=== PATIENT | male | born 1965 | race Hispanic/Latino ===

== ENCOUNTER → 2018-07-21 | Outpatient (CLI) | payer MEDICAID ==
[~2018-07-21] MED LIST: ASPI-1005 PO; ATOR40TA69 PO; CARV12.580 PO; FENO48TA15 PO; LISI-613 PO; Nitroglycerin 0.4MG Sl Tab SL; TICA90TA PO
== END | disposition home or self-care (01) ==
LOC: SHCH 15:50
PROVIDERS: ATTEND Internal Medicine Cardiovascular Disease
DX: I10 Essential (primary) hypertension (principal)
CPT/HCPCS: 93306

== ENCOUNTER 2018-08-30 15:14 | Inpatient (IN) | payer MEDICAID ==
[~2018-08-30] VITALS: Ht 165.1 cm; Wt 108.8 kg
[2018-08-30] MEDS ORDERED: ENOXAPARIN SODIUM 100 MG/1 ML SQ ONE (15:40)
[2018-08-30] MEDS ORDERED: ACETAMINOPHEN-CODEINE 300/30MG TAB ONE (15:41)
[2018-08-30 15:56] LABS: BASOPHILS % (AUTO) 1.1 % (0.0-5.0); EOSINOPHILS % (AUTO) 2.7 % (0.0-8.0); HEMATOCRIT 40.2 % (42-54); LYMPHOCYTES % (AUTO) 37.1 % (21.0-51.0); MEAN CORPUSCULAR HEMOGLOBIN 30.5 pg (27.0-33.0); MEAN CORPUSCULAR HGB CONC 34.5 g/dL (32.0-36.0); MEAN CORPUSCULAR VOLUME 88.5 fL (79-99); MONOCYTES % (AUTO) 5.2 % (3.0-13.0); NEUTROPHILS % (AUTO) 53.9 % (40.0-77.0); NUCLEATED RED BLOOD CELLS 0.1 % (0.0-0.19); PLATELET COUNT (AUTO) 196 K/uL (130-400); RED BLOOD CELL COUNT(AUTO) 4.55 MIL/uL (4.50-6.20); RED CELL DISTRIBUTION WIDTH 13.9 % (11.0-15.5); WHITE BLOOD COUNT (AUTO) 6.6 K/uL (4.8-10.8)
[2018-08-30 16:11] LABS: INR 0.89 (0.85-1.15); PARTIAL THROMBOPLASTIN TIME 26.7 SEC (26.3-35.5); PROTHROMBIN TIME 9.4 SEC (9.6-11.6)
[2018-08-30 16:12] LABS: CREATININE 1.2 mg/dL (0.5-1.5); POTASSIUM 4.7 mmol/L (3.5-5.1)
[2018-08-30] MEDS ORDERED: IOHEXOL-350 75 ML VIAL IV ONE (16:21)
[2018-08-30 16:23] LABS: ALBUMIN 3.2 g/dL (3.5-5.0); BILIRUBIN,TOTAL 0.4 mg/dL (0.2-1.0); TOTAL PROTEIN, SERUM 7.3 g/dL (6.0-8.3)
[2018-08-30 16:30] LABS: B-TYPE NATRIURETIC PEPTIDE 93 pg/mL (0-100)
[2018-08-30] MEDS ORDERED: DEXTROSE 50%-WATER 50 ML DISP.SYRIN IV PRN (18:30)
[2018-08-30] MEDS ORDERED: GLUCAGON 1MG KIT 1 MG ML IM PRN (18:30)
[2018-08-30 18:58] LABS: HEMOGLOBIN A1C 10.7 % (4.0-6.0)
[2018-08-30] MEDS ORDERED: HYDROCODONE/ACETAMINOPHEN 5/325 MG TAB ONE (20:04)
[2018-08-30] MEDS: INSULIN HUMULIN R 100 UNIT/ML 3ML SQ SCH (21:00)
[2018-08-30] MEDS ORDERED: INSULIN HUMULIN R 100 UNIT/ML 3ML ONE (21:42)
[2018-08-30 22:10] VITALS: BP 118/70
[2018-08-30] MEDS ORDERED: SODIUM CHLORIDE 0.9% 1000ML 1,000 ML IV SCH (23:37)
[2018-08-30] MEDS ORDERED: HYDROCODONE/ACETAMINOPHEN 5/325 MG TAB PO PRN (23:45)
[2018-08-30] MEDS ORDERED: ACETAMINOPHEN 325 MG TAB PO PRN (23:45)
[2018-08-30] MEDS ORDERED: ONDANSETRON HCL 4 MG/2 ML VIAL IV PRN (23:45)
[2018-08-31] VITALS: BP 106/65
[2018-08-31] MEDS: SODIUM CHLORIDE 0.9% 1000ML 1,000 ML IV SCH ×2 (03:06→22:48)
[2018-08-31] MEDS: HYDROCODONE/ACETAMINOPHEN 5/325 MG TAB PO PRN ×4 (03:15→18:18)
[2018-08-31 04:00] VITALS: BP 116/74
[2018-08-31 05:23] LABS: BASOPHILS % (AUTO) 1.2 % (0.0-5.0); EOSINOPHILS % (AUTO) 3.3 % (0.0-8.0); HEMATOCRIT 37.9 % (42-54); LYMPHOCYTES % (AUTO) 58.9 % (21.0-51.0); MEAN CORPUSCULAR HEMOGLOBIN 31.7 pg (27.0-33.0); MEAN CORPUSCULAR HGB CONC 35.5 g/dL (32.0-36.0); MEAN CORPUSCULAR VOLUME 89.2 fL (79-99); MONOCYTES % (AUTO) 6.7 % (3.0-13.0); NEUTROPHILS % (AUTO) 29.9 % (40.0-77.0); NUCLEATED RED BLOOD CELLS 0.1 % (0.0-0.19); PLATELET COUNT (AUTO) 211 K/uL (130-400); RED BLOOD CELL COUNT(AUTO) 4.25 MIL/uL (4.50-6.20); RED CELL DISTRIBUTION WIDTH 14.2 % (11.0-15.5); WHITE BLOOD COUNT (AUTO) 7.1 K/uL (4.8-10.8)
[2018-08-31 05:37] LABS: ALBUMIN 3.1 g/dL (3.5-5.0); BILIRUBIN,TOTAL 0.4 mg/dL (0.2-1.0); CREATININE 0.8 mg/dL (0.5-1.5); POTASSIUM 3.5 mmol/L (3.5-5.1); TOTAL PROTEIN, SERUM 6.9 g/dL (6.0-8.3)
[2018-08-31] MEDS: INSULIN HUMULIN R 100 UNIT/ML 3ML SQ SCH ×4 (06:02→20:49)
[2018-08-31 08:00] VITALS: BP 119/75
[2018-08-31] MEDS ORDERED: SERT50TA12 PO (08:23)
[2018-08-31] MEDS ORDERED: GABA-529 PO (08:23)
[2018-08-31] MEDS ORDERED: CARV25TA PO (08:23)
[2018-08-31] MEDS ORDERED: INSLAN SQ (08:23)
[2018-08-31] MEDS: PANTOPRAZOLE SODIUM 40 MG TABLET.DR PO SCH (09:14)
[2018-08-31] MEDS: ENOXAPARIN SODIUM 100 MG/1 ML SQ SCH ×2 (09:14→21:02)
[2018-08-31 11:38] VITALS: BP 136/60
[2018-08-31 16:00] VITALS: BP 126/63
[2018-08-31 19:54] VITALS: BP 123/78
[2018-08-31] MEDS ORDERED: POTASSIUM CHLORIDE 20 MEQ ERTAB PO PRN (20:00)
[2018-08-31] MEDS ORDERED: POTASSIUM CHLORIDE 10% ELIXIR 20 MEQ/15 ML UDCUP PO PRN (20:00)
[2018-08-31] MEDS ORDERED: POTASSIUM CHLORIDE 10 MEQ/TAB.SA PO ONE ×2 (20:45→20:46)
[2018-08-31] MEDS: GABAPENTIN 100 MG CAPSULE PO SCH (21:01)
[2018-08-31] MEDS: FENOFIBRATE NANOCRYSTALLIZED 48 MG TAB PO SCH (21:01)
[2018-08-31] MEDS: TICAGRELOR 90 MG TABLET PO SCH (21:02)
[2018-09-01] VITALS (7 sets, daily range): BP systolic 115–127; BP diastolic 73–78
[2018-09-01] MEDS ORDERED: POTASSIUM CHLORIDE 10 MEQ/TAB.SA PO ONE ×2 (02:01)
[2018-09-01] MEDS: HYDROCODONE/ACETAMINOPHEN 5/325 MG TAB PO PRN ×2 (02:06→07:57)
[2018-09-01 05:09] LABS: BASOPHILS % (AUTO) 1.1 % (0.0-5.0); EOSINOPHILS % (AUTO) 3.7 % (0.0-8.0); HEMATOCRIT 36.4 % (42-54); LYMPHOCYTES % (AUTO) 54.8 % (21.0-51.0); MEAN CORPUSCULAR HEMOGLOBIN 31.4 pg (27.0-33.0); MEAN CORPUSCULAR HGB CONC 35.5 g/dL (32.0-36.0); MEAN CORPUSCULAR VOLUME 88.5 fL (79-99); MONOCYTES % (AUTO) 6.9 % (3.0-13.0); NEUTROPHILS % (AUTO) 33.5 % (40.0-77.0); NUCLEATED RED BLOOD CELLS 0.2 % (0.0-0.19); PLATELET COUNT (AUTO) 183 K/uL (130-400); RED BLOOD CELL COUNT(AUTO) 4.12 MIL/uL (4.50-6.20); RED CELL DISTRIBUTION WIDTH 14.2 % (11.0-15.5); WHITE BLOOD COUNT (AUTO) 6.1 K/uL (4.8-10.8)
[2018-09-01] MEDS: INSULIN HUMULIN R 100 UNIT/ML 3ML SQ SCH ×4 (06:46→21:27)
[2018-09-01] MEDS: PANTOPRAZOLE SODIUM 40 MG TABLET.DR PO SCH (07:51)
[2018-09-01] MEDS: ASPIRIN 81MG TAB.CHEW PO SCH (07:51)
[2018-09-01] MEDS: SERTRALINE HCL 50 MG TABLET PO SCH (07:51)
[2018-09-01] MEDS: TICAGRELOR 90 MG TABLET PO SCH ×2 (07:51→21:24)
[2018-09-01] MEDS: CARVEDILOL 25 MG TABLET PO SCH (07:51)
[2018-09-01] MEDS: GABAPENTIN 100 MG CAPSULE PO SCH ×3 (07:51→21:24)
[2018-09-01] MEDS: ENOXAPARIN SODIUM 100 MG/1 ML SQ SCH ×2 (07:52→21:25)
[2018-09-01] MEDS: INSULIN GLARGINE 100 UNITS/ML 10 ML VIAL SQ SCH (07:54)
[2018-09-01] MEDS: MORPHINE SULFATE 2 MG/ML 1ML SYG IVP PRN ×2 (13:03→18:14)
[2018-09-01] MEDS: FENOFIBRATE NANOCRYSTALLIZED 48 MG TAB PO SCH (21:24)
[2018-09-01] MEDS: MORPHINE SULFATE 4 MG/1ML SYG IVP PRN (21:46)
[2018-09-02 04:17] VITALS: BP 136/77
[2018-09-02 04:21] LABS: HEMATOCRIT 36.7 % (42-54); MEAN CORPUSCULAR HEMOGLOBIN 32.5 pg (27.0-33.0); MEAN CORPUSCULAR HGB CONC 36.4 g/dL (32.0-36.0); MEAN CORPUSCULAR VOLUME 89.3 fL (79-99); NUCLEATED RED BLOOD CELLS 0.1 % (0.0-0.19); PLATELET COUNT (AUTO) 218 K/uL (130-400); RED BLOOD CELL COUNT(AUTO) 4.11 MIL/uL (4.50-6.20); WHITE BLOOD COUNT (AUTO) 5.6 K/uL (4.8-10.8)
[2018-09-02 04:39] LABS: CREATININE 0.9 mg/dL (0.5-1.5); POTASSIUM 4.1 mmol/L (3.5-5.1)
[2018-09-02 04:42] LABS: B-TYPE NATRIURETIC PEPTIDE 321 pg/mL (0-100)
[2018-09-02] MEDS: INSULIN HUMULIN R 100 UNIT/ML 3ML SQ SCH ×4 (06:11→22:08)
[2018-09-02] MEDS: ENOXAPARIN SODIUM 100 MG/1 ML SQ SCH ×2 (07:03→10:56)
[2018-09-02] MEDS: INSULIN GLARGINE 100 UNITS/ML 10 ML VIAL SQ SCH ×2 (07:03→10:59)
[2018-09-02] MEDS: ASPIRIN 81MG TAB.CHEW PO SCH ×2 (07:04→10:55)
[2018-09-02] MEDS: TICAGRELOR 90 MG TABLET PO SCH ×2 (07:04→10:55)
[2018-09-02 07:55] VITALS: BP 122/70
[2018-09-02] MEDS: CARVEDILOL 25 MG TABLET PO SCH ×2 (09:00→10:55)
[2018-09-02] MEDS: GABAPENTIN 100 MG CAPSULE PO SCH ×4 (09:00→20:04)
[2018-09-02] MEDS: SERTRALINE HCL 50 MG TABLET PO SCH ×2 (09:00→10:55)
[2018-09-02] MEDS: PANTOPRAZOLE SODIUM 40 MG TABLET.DR PO SCH ×2 (09:00→10:55)
[2018-09-02 11:00] VITALS: BP 149/111
[2018-09-02] MEDS: MORPHINE SULFATE 4 MG/1ML SYG IVP PRN ×3 (11:08→20:06)
[2018-09-02 16:04] VITALS: BP 126/75
[2018-09-02] MEDS ORDERED: TICAGRELOR 90 MG TABLET ONE (19:53)
[2018-09-02] MEDS: FENOFIBRATE NANOCRYSTALLIZED 48 MG TAB PO SCH (20:05)
[2018-09-02] MEDS: APIXABAN 5 MG TABLET PO SCH (20:05)
[2018-09-02 20:09] VITALS: BP 118/67
[2018-09-02] MEDS ORDERED: TICAGRELOR 90 MG TABLET PO SCH (21:00)
[2018-09-02 23:40] VITALS: BP 120/84
[2018-09-03] MEDS: MORPHINE SULFATE 4 MG/1ML SYG IVP PRN ×2 (02:13→08:05)
[2018-09-03 04:25] VITALS: BP 119/71
[2018-09-03] MEDS: INSULIN HUMULIN R 100 UNIT/ML 3ML SQ SCH ×2 (07:30→11:01)
[2018-09-03 07:43] VITALS: BP 110/67
[2018-09-03 08:02] VITALS: BP 110/67
[2018-09-03] MEDS: CARVEDILOL 25 MG TABLET PO SCH (08:02)
[2018-09-03] MEDS: APIXABAN 5 MG TABLET PO SCH (08:02)
[2018-09-03] MEDS: SERTRALINE HCL 50 MG TABLET PO SCH (08:02)
[2018-09-03] MEDS: PANTOPRAZOLE SODIUM 40 MG TABLET.DR PO SCH (08:02)
[2018-09-03] MEDS: INSULIN GLARGINE 100 UNITS/ML 10 ML VIAL SQ SCH (08:03)
[2018-09-03] MEDS: GABAPENTIN 100 MG CAPSULE PO SCH ×2 (08:06→14:00)
[2018-09-03] MEDS ORDERED: CLOPIDOGREL BISULFATE 75 MG TAB PO SCH (09:00)
[2018-09-03] MEDS ORDERED: APIX5TAB PO ×2 (13:28)
[2018-09-03] MEDS ORDERED: CLOP75TA14 PO (13:28)
== END 2018-09-03 14:50 | disposition home or self-care (01) | DRG 197 ==
LOC: EDH 15:14 → EDHIP 15:15 → UNDOADMIN 18:45 → 2DH 21:34
PROVIDERS: ADMIT Internal Medicine; ATTEND Internal Medicine
DX: I82.412 Acute embolism and thrombosis of left femoral vein (principal); I26.99 Other pulmonary embolism without acute cor pulmonale; E11.40 Type 2 diabetes mellitus with diabetic neuropathy, unspecified; I11.0 Hypertensive heart disease with heart failure; I50.20 Unspecified systolic (congestive) heart failure; E11.65 Type 2 diabetes mellitus with hyperglycemia; E78.5 Hyperlipidemia, unspecified; I25.10 Atherosclerotic heart disease of native coronary artery without angina pectoris; I25.5 Ischemic cardiomyopathy; F32.9 Major depressive disorder, single episode, unspecified; I82.432 Acute embolism and thrombosis of left popliteal vein; E66.01 Morbid (severe) obesity due to excess calories; F41.9 Anxiety disorder, unspecified; Z87.891 Personal history of nicotine dependence; I25.2 Old myocardial infarction; Z79.82 Long term (current) use of aspirin; Z82.49 Family history of ischemic heart disease and other diseases of the circulatory system; Z83.3 Family history of diabetes mellitus; Z95.1 Presence of aortocoronary bypass graft; Z95.5 Presence of coronary angioplasty implant and graft; Z82.5 Family history of asthma and other chronic lower respiratory diseases; Z79.4 Long term (current) use of insulin; Z79.899 Other long term (current) drug therapy; Z68.39 Body mass index [BMI] 39.0-39.9, adult
CPT/HCPCS: 36415; 71045; 71275; 80048; 80053; 82550; 82948; 83036; 83874; 83880; 84484; 85025; 85027; 85610; 85730; 93005; 93306; 93971; G0378; J1650; J1815; J2270; J7030; Q9967

== ENCOUNTER 2018-10-31 16:04 | Emergency (ER) | payer MEDICAID ==
[~2018-10-31 16:04] MED LIST changes: +APIX5TAB PO; -ATOR40TA69 PO; -CARV12.580 PO; +CARV25TA PO; +CLOP75TA14 PO; +GABA-529 PO; +INSLAN SQ; -LISI-613 PO; -Nitroglycerin 0.4MG Sl Tab SL; +SERT50TA12 PO; -TICA90TA PO
[2018-10-31 16:40] LABS: BASOPHILS % (AUTO) 0.9 % (0.0-5.0); EOSINOPHILS % (AUTO) 1.9 % (0.0-8.0); HEMATOCRIT 43.6 % (42-54); LYMPHOCYTES % (AUTO) 47.8 % (21.0-51.0); MEAN CORPUSCULAR HEMOGLOBIN 30.2 pg (27.0-33.0); MEAN CORPUSCULAR HGB CONC 34.1 g/dL (32.0-36.0); MEAN CORPUSCULAR VOLUME 88.6 fL (79-99); MONOCYTES % (AUTO) 4.5 % (3.0-13.0); NEUTROPHILS % (AUTO) 44.9 % (40.0-77.0); NUCLEATED RED BLOOD CELLS 0.1 % (0.0-0.19); PLATELET COUNT (AUTO) 270 K/uL (130-400); RED BLOOD CELL COUNT(AUTO) 4.92 MIL/uL (4.50-6.20); RED CELL DISTRIBUTION WIDTH 13.6 % (11.0-15.5); WHITE BLOOD COUNT (AUTO) 6.9 K/uL (4.8-10.8)
[2018-10-31 16:50] LABS: CREATININE 1.1 mg/dL (0.5-1.5); POTASSIUM 4.6 mmol/L (3.5-5.1)
[2018-10-31 16:51] LABS: INR 0.94 (0.85-1.15); PARTIAL THROMBOPLASTIN TIME 30.6 SEC (26.3-35.5); PROTHROMBIN TIME 9.9 SEC (9.6-11.6)
[2018-10-31] MEDS ORDERED: ASPIRIN 325 MG TABLET ONE (17:01)
[2018-10-31 17:12] LABS: ALBUMIN 3.1 g/dL (3.5-5.0); BILIRUBIN,TOTAL 0.3 mg/dL (0.2-1.0); TOTAL PROTEIN, SERUM 7.4 g/dL (6.0-8.3)
[2018-10-31] MEDS ORDERED: SODIUM CHLORIDE 0.9% 1000ML 1,000 ML IV ONE (17:33)
[2018-10-31] MEDS ORDERED: INSULIN HUMULIN R 100 UNIT/ML 3ML ONE (17:34)
== END 2018-10-31 18:41 | disposition home or self-care (01) ==
LOC: EDH 16:04
DX: R07.89 Other chest pain (principal); I11.0 Hypertensive heart disease with heart failure; I50.9 Heart failure, unspecified; I25.10 Atherosclerotic heart disease of native coronary artery without angina pectoris; E11.9 Type 2 diabetes mellitus without complications; E78.5 Hyperlipidemia, unspecified; Z95.1 Presence of aortocoronary bypass graft; Z79.4 Long term (current) use of insulin
CPT/HCPCS: 36415; 71045; 80053; 82550; 83874; 84484; 85025; 85610; 85730; 93005; 96374; 99284; J1815; J7030

== ENCOUNTER 2019-03-07 17:28 | Emergency (ER) | payer MEDICAID | END 2019-03-07 18:00 | disposition left against medical advice (07) | LOC: EDH 17:28 | DX: E11.52 Type 2 diabetes mellitus with diabetic peripheral angiopathy with gangrene (principal); L03.031 Cellulitis of right toe; I96 Gangrene, not elsewhere classified; I11.0 Hypertensive heart disease with heart failure; I50.9 Heart failure, unspecified; I25.810 Atherosclerosis of coronary artery bypass graft(s) without angina pectoris; E78.5 Hyperlipidemia, unspecified; I25.2 Old myocardial infarction; Z79.4 Long term (current) use of insulin; Z72.0 Tobacco use | CPT/HCPCS: 99281 ==

== ENCOUNTER → 2021-03-14 | Outpatient (CLI) | payer MEDICAID ==
[~2021-03-14] VITALS: Ht 163.8 cm; Wt 100.8 kg
[~2021-03-14] MED LIST changes: +CEFAZOLIN SODIUM 1 GM VIAL IVP SCH; +SERT-439 PO; -SERT50TA12 PO
[2021-03-15 11:17] LABS: CREATININE 1.1 mg/dL (0.5-1.5); POTASSIUM 4.6 mmol/L (3.5-5.1)
[2021-03-15 11:42] LABS: BASOPHILS % (AUTO) 1.3 % (0.0-5.0); HEMATOCRIT 39.8 % (42-54); LYMPHOCYTES % (AUTO) 42.5 % (21.0-51.0); MEAN CORPUSCULAR HEMOGLOBIN 29.9 pg (27.0-33.0); MEAN CORPUSCULAR HGB CONC 33.9 g/dL (32.0-36.0); MEAN CORPUSCULAR VOLUME 88.2 fL (79-99); MONOCYTES % (AUTO) 5.7 % (3.0-13.0); NEUTROPHILS % (AUTO) 46.6 % (40.0-77.0); PLATELET COUNT (AUTO) 274 K/uL (130-400); RED BLOOD CELL COUNT(AUTO) 4.51 MIL/uL (4.50-6.20); RED CELL DISTRIBUTION WIDTH 12.7 % (11.0-15.5)
[2021-03-18 11:32] VITALS: BP 122/66
== END | disposition home or self-care (01) ==
LOC: DAH 10:00 → EDSTATUS 03-19 09:00
PROVIDERS: ATTEND Surgery
DX: Z01.818 Encounter for other preprocedural examination (principal); Z20.822 Contact with and (suspected) exposure to COVID-19; L05.01 Pilonidal cyst with abscess
CPT/HCPCS: 87635; C9803; 36415; 80048; 85025